=== PATIENT | female | born 2000 | race Hispanic/Latino ===

== ENCOUNTER 2018-02-21 10:54 | Emergency (ER) | payer BC ==
[~2018-02-21] VITALS: Ht 157.5 cm; Wt 56.2 kg
== END 2018-02-21 11:43 | disposition home or self-care (01) ==
LOC: ER 10:54
DX: M79.642 Pain in left hand (principal); M54.2 Cervicalgia; M25.512 Pain in left shoulder; S46.812A Strain of other muscles, fascia and tendons at shoulder and upper arm level, left arm, initial encounter
CPT/HCPCS: 99283

== ENCOUNTER → 2018-03-10 | Outpatient (CLI) | payer BC ==
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
== END ==
LOC: MRI 14:31
PROVIDERS: ATTEND Internal Medicine
DX: M54.2 Cervicalgia (principal); M50.30 Other cervical disc degeneration, unspecified cervical region
CPT/HCPCS: 72141